=== PATIENT | male | born 2000 | race Two or more races ===

== ENCOUNTER 2019-02-22 00:46 | Emergency (ER) | payer OTHER ==
[~2019-02-22] VITALS: Ht 172.7 cm; Wt 86.2 kg
[2019-02-22 00:55] VITALS: BP 113/71
--- NOTE | 2019-02-22 00:55 | NUR ---
PT BIB FATHER C/O HEADACHE, EPIGASTRIC PAIN WITH NAUSEA X3 DAYS. NAD NOTED. RESP EVEN AND UNLABORED. PT ON MONITOR IN BED 3 WITH FATHER AT BEDSIDE. WILL CONTINUE TO MONITOR.
--- NOTE | 2019-02-22 01:24 | NUR ---
PT RETURNED FROM RADIOLOGY VIA [facility]
[2019-02-22] MEDS ORDERED: ONDANSETRON 4 MG TAB.RAPDIS ONE (01:26)
[2019-02-22] MEDS ORDERED: oxyCODONE/APAP (5/325 MG) 1 UDTAB TABLET ONE (01:26)
[2019-02-22] MEDS ORDERED: ONDANSETRON 4 MG TAB.RAPDIS SL ONE (01:30)
[2019-02-22] MEDS ORDERED: oxyCODONE/APAP (5/325 MG) 1 UDTAB TABLET PO ONE (01:30)
--- NOTE | 2019-02-22 03:09 | NUR ---
Patient discharged to home in stable condition. Written and verbal after care instructions given. Patient verbalizes understanding of instruction.
== END 2019-02-22 03:10 | disposition home or self-care (01) ==
LOC: ER 00:53
DX: R51 Headache (principal); R11.0 Nausea; F17.200 Nicotine dependence, unspecified, uncomplicated
CPT/HCPCS: 70450; 99284; Q0162